=== PATIENT | male | born 1970 | race Caucasian/White ===

== ENCOUNTER 2020-07-10 15:22 | Outpatient (REF) | payer OTHER, SELFPAY ==
[2020-07-10 16:28] LABS: Iron 117 mcg/dL (45-160); Percent Iron Saturation 30 % (15-50); Total Iron Binding Capacity 387 mcg/dL (228-428); Unsaturated Iron Binding 270 ug/dL
[2020-07-10 16:48] LABS: Ferritin 16 ng/mL (20-250)
== END 2020-07-10 15:23 | disposition home or self-care (01) ==
LOC: HO.BBR 15:22
PROVIDERS: PCP Internal Medicine; Visit Provider Internal Medicine Gastroenterology
DX: E83.110 Hereditary hemochromatosis (principal)
CPT/HCPCS: 36415; 82728; 83540

== ENCOUNTER 2020-07-10 15:55 | Outpatient (REF) | payer SELFPAY ==
[2020-07-11 09:18] LABS: SARS COV2 IgG Negative (Negative)
== END 2020-07-10 15:56 | disposition home or self-care (01) ==
LOC: HO.LNC 15:55
PROVIDERS: Visit Provider Pathology Anatomic Pathology & Clinical Pathology
DX: Z13.89 Encounter for screening for other disorder (principal)
CPT/HCPCS: 86769

== ENCOUNTER 2020-11-27 15:16 | Outpatient (REF) | payer OTHER, SELFPAY | END 2020-11-27 15:17 | disposition home or self-care (01) | LOC: HO.BBR 15:16 | PROVIDERS: Visit Provider Internal Medicine Gastroenterology | DX: Z13.89 Encounter for screening for other disorder (principal) ==

== ENCOUNTER 2021-04-23 15:49 | Outpatient (REF) | payer OTHER, SELFPAY | END 2021-04-23 15:50 | disposition home or self-care (01) | LOC: HO.BBR 15:49 | PROVIDERS: PCP Internal Medicine; Visit Provider Internal Medicine Gastroenterology | DX: Z13.89 Encounter for screening for other disorder (principal) ==

== ENCOUNTER 2022-01-29 10:00 | Outpatient (REF) | payer OTHER, SELFPAY | END 2022-01-29 10:01 | disposition home or self-care (01) | LOC: HO.BBR 10:00 | PROVIDERS: Visit Provider Internal Medicine Gastroenterology | DX: Z13.89 Encounter for screening for other disorder (principal) ==

== ENCOUNTER 2022-08-05 15:29 | Outpatient (REF) | payer OTHER, SELFPAY | END 2022-08-05 15:30 | disposition home or self-care (01) | LOC: HO.BBR 15:29 | PROVIDERS: Visit Provider Internal Medicine Gastroenterology | DX: Z13.89 Encounter for screening for other disorder (principal) ==

== ENCOUNTER 2023-09-11 15:31 | Outpatient (REF) | payer BC, SELFPAY | END 2023-09-11 15:32 | disposition home or self-care (01) | LOC: HO.BBR 15:31 | PROVIDERS: PCP Internal Medicine; Visit Provider Internal Medicine Gastroenterology | DX: Z13.89 Encounter for screening for other disorder (principal) ==

== ENCOUNTER 2024-02-01 09:02 | Outpatient (REF) | payer BC, SELFPAY | END 2024-02-01 09:03 | disposition home or self-care (01) | LOC: HO.BBR 09:02 | PROVIDERS: PCP Internal Medicine; Visit Provider Internal Medicine Gastroenterology | DX: Z13.89 Encounter for screening for other disorder (principal) ==

== ENCOUNTER 2024-06-07 15:28 | Outpatient (REF) | payer BC, SELFPAY | END 2024-06-07 15:29 | disposition home or self-care (01) | LOC: HO.BBR 15:28 | PROVIDERS: PCP Internal Medicine; Visit Provider Internal Medicine Gastroenterology | DX: Z13.89 Encounter for screening for other disorder (principal) ==

== ENCOUNTER 2024-09-06 11:52 | Outpatient (REF) | payer BC, SELFPAY ==
--- OUTSIDE RECORDS SUMMARY | 2024-09-06 13:03 | XMS_ITS | Clinical Summary ---
Author Organization [facility] Address [address] [id number] Care Team Providers Care Icu Nurse Name Role Phone Dhaval Martinez MD Primary Care Provider [phone] Allergies No known active allergies Medications Medication Sig Dispensed Refills Start Date End Date Status LOSARTAN POTASSIUM PO Take by mouth. 0 Active METOPROLOL SUCCINATE PO Take by mouth. 0 Active HYDROCHLOROTHIAZIDE PO Take by mouth. 0 Active cephalexin (KEFLEX) 500 MG capsule Take 1 capsule (500 mg total) by mouth 4 (four) times a day. 28 capsule 0 01/30/2024 Active Active Problems No known active problems Social History Tobacco Use Types Packs/Day Years Used Date Smoking Tobacco: Never Smokeless Tobacco: Never Tobacco Cessation:Counseling Given: No Alcohol Use Standard Drinks/Week Comments Not Currently 0 (1 standard drink = 0.6 oz pur e alcohol) Sex and Gender Information Value Date Recorded Sex Assigned at Male 01/30/2024 12:01 AM EDT Gender Identity Male 01/30/2024 12:01 AM EDT Sexual Orientation Not on file Job Start Date Occupation Industry Not on file Not on file Not on file Last Filed Vital Signs Vital Sign Reading Time Taken Comments Blood Pressure 155/81 01/30/2024 7:51 AM EDT Pulse 69 01/30/2024 7:51 AM EDT Temperature 37.1 ??C (98.7 ??F) 01/30/2024 7:51 AM ED T Respiratory Rate 16 01/30/2024 9:39 AM EDT Oxygen Saturation 98% 01/30/2024 7:51 AM EDT Inhaled Oxygen Concentration - - Weight 117.9 kg (260 lb) 01/29/2024 11:19 PM EDT Height 190.5 cm (6' 3 ) 01/29/2024 11:19 PM EDT Body Mass Index 32.5 01/29/2024 11:19 PM EDT Plan of Treatment Health Maintenance Due Date Last Done Comments Hepatitis B Vaccines (1 of 3 - 3-dose series) 1969 Hepatitis C Screening 1969 COVID-19 Vaccine (#1) 1969 Depression Screening 1981 Preventative Health Evaluation 1987 DTap / Tdap / Td (1 - Tdap) 1988 Colon Cancer Screening (Colonoscopy) 2014 Shingrix-Zoster Vaccine (1 of 2) 2019 Influenza Vaccine (#1) 2024 04/29/2021 Pneumococcal Vaccine Aged Out No long er eligible based on patient's age to complete this topic RSV Ped < 20 months Aged Out No longe r eligible based on patient's age to complete this topic Care Teams Icu Nurse Relationship Specialty Start Date End Date Dhaval Martinez MD [address] [facility] Primary Care [place] [address] PCP - General Internal Medicine 01/29/24
--- OUTSIDE RECORDS SUMMARY | 2024-09-06 13:03 | XMS_ITS | Clinical Summary ---
Author Organization [facility] ity Address [address] [place] [address] Care Team Providers Care Eyeglass Frames Inspector Name Role Phone Dhaval Martinez MD Primary Care Provider Medical History Medical History Date Comments Hypertension DX:Hypertension Hyperlipidemia DX:Hyperlipidemi a Social History Tobacco Use Types Packs/Day Years Used Date Smoking Tobacco: Never Smokeless Tobacco: Never Alcohol Use Standard Drinks/Week Comments Not Currently 0 (1 standard drink = 0.6 oz pur e alcohol) Sex and Gender Information Value Date Recorded Sex Assigned at Not on file Legal Sex Male 4:00 PM EST Gender Identity Not on file Sexual Orientation Not on file Obstetrics History Plan of Treatment Health Maintenance Due Date Last Done Comments DTaP,Tdap,and Td Vaccines (1 - Tdap) 1988 Hepatitis B Vaccines (1 of 3 - 19+ 3-dose series) 1988 Pneumococcal Vaccine: 50+ Ye ars (1 of 1 - PCV) 2019 Zoster Vaccines (1 of 2) 2019 Cholesterol Screening (Lipid Panel) 06/18/2022 Colorectal Cancer Screening: Colonoscopy 06/18/2022 Depression Screening 06/18/2022 HIV Screening 06/18/2022 Hepatitis C Screening 06/18/2022 Social Influencers of Health Screening 06/18/2022 COVID-19 Vaccine ( - 2023-2 5 season) 2024 Influenza Vaccine (#1) 2024 HIB Vaccines Aged Out No longer eligi ble based on patient's age to complete this topic HPV Vaccines Aged Out No longer eligi ble based on patient's age to complete this topic Hepatitis A Vaccines Aged Out No long er eligible based on patient's age to complete this topic IPV Vaccines Aged Out No longer eligi ble based on patient's age to complete this topic MMR Vaccines Aged Out No longer eligi ble based on patient's age to complete this topic Meningococcal ACWY Vaccine Aged Out N o longer eligible based on patient's age to complete this topic Meningococcal B Vacine Aged Out No lo nger eligible based on patient's age to complete this topic Pneumococcal Vaccine: Pediat rics (0 to 5 Years) and At-Risk Patients (6 to 64 Years) Aged Out No longer eligible b ased on patient's age to complete this topic RSV Immunization Patients Un jeovany 20 months Aged Out No longer eligible b ased on patient's age to complete this topic Varicella Vaccines Aged Out No longer eligible based on patient's age to complete this topic Procedures Procedure Name Priority Date/Time Associated Diagnosis Comments EXTERNAL CLINICAL LAB 06/08/2024 from Last 3 Months Results * External clinical lab (06/08/2024) us Provider [facility] BLOOD ORDERABLES Fin al Result from Last 3 Months Care Teams Eyeglass Frames Inspector Relationship Specialty Start Date End Date Dhaval Martinez MD [address] [facility] [address] [place], [place] PCP - General 01/29/24
== END 2024-09-06 11:53 | disposition home or self-care (01) ==
LOC: HO.BBR 11:52
PROVIDERS: PCP Internal Medicine; Visit Provider Internal Medicine Gastroenterology
DX: Z13.89 Encounter for screening for other disorder (principal)

== ENCOUNTER 2024-12-06 15:16 | Outpatient (REF) | payer BC, SELFPAY ==
--- OUTSIDE RECORDS SUMMARY | 2024-12-06 16:22 | XMS_ITS | Clinical Summary ---
Author Organization [facility] Address [address] [id number] Care Team Providers Care Production Support Manager Name Role Phone Dhaval Martinez MD Primary Care Provider [phone]- [phone] Allergies No known active allergies Medications Medication [...] age to complete this topic Care Teams Production Support Manager Relationship Specialty Start Date End Date Dhaval Martinez MD [address] [facility] Primary Care [place] [address] PCP - General Internal Medicine 01/29/24
--- OUTSIDE RECORDS SUMMARY | 2024-12-06 16:22 | XMS_ITS ---
Author Name [facility] Organization Unknown Results Test Name/Text Value Interpretation Date Range Source BNP BLD MCNC 10pg/mL Normal [id number] 0 - 100 [facility] D DIMER DDU PPP EIA MCNC 177ng/mLDDU Normal [id number] - 231 [facility] POTASSIUM SERPL SCNC 3.7mmol/L Normal [id number] 3.5 - 5.1 [facility] CALCIUM SERPL MCNC 8.9mg/dL Normal [id number] 8.4 - 10 .2 [facility] ANION GAP SERPL SCNC 9mmol/L Normal [id number] 5 - 14 [facility] HCO3 SER SCNC 28mmol/L Normal [id number] 24 - 32 [facility] SODIUM SERPL SCNC 138mmol/L Normal [id number] 135 - 145 [facility] CREAT SERPL MCNC 1.1mg/dL Normal [id number] 0.7 - [facility]3 [facility] Glomerular filtration rate/1.73 sq M. predicted 80 Normal [id number] 60 - [facility] BUN SERPL MCNC 16mg/dL Normal [id number] 9 - 20 [facility] GLUCOSE SERPL MCNC 97mg/dL Normal [id number] 70 - 199 [facility] CHLORIDE SERPL SCNC 101mmol/L Normal [id number] 98 - 10 7 [facility] BASOPHILS IN BLOOD BY AUTOMATED COUNT 0K/uL Normal [id number] 0 - 0.2 [facility] NEUTROPHILS NFR BLD AUTO 65% Normal [id number] 44 - 74 [facility] MCH RBC QN AUTO 33.7pg Above high normal [id number] 25 - 33 [facility] NEUTROPHILS NO. BLD AUTO 5.7K/uL Normal [id number] 1.8 - 7.8 [facility] NUCLEATED RBC 0% Normal [id number] 0 - 1 [facility] LYMPHOCYTES NO. BLD AUTO 1.8K/uL Normal [id number] 1 - 3.2 [facility] IMMATURE GRANULOCYTE, PERCENT 0.8% Normal [id number] 0 - 1 [facility] HCT VFR BLD AUTO 45.1% Normal [id number] 40 - 54 [facility] MCV RBC AUTO 90.9fL Normal [id number] 78 - 100 [facility] IMMATURE GRANULOCYTE, ABSOLUTE 0.07k/uL Normal [id number] - 0.1 [facility] RBC NO. BLD AUTO 4.96M/uL Normal [id number] 4.7 - 6 [facility] PMV BLD AUTO 9.3fL Normal [id number] 7.4 - 11.4 [facility] PLATELET NO. BLD AUTO 143K/uL Below low normal [id number] 5 150 - 450 [facility] RDW RBC AUTO RTO 12.7% Normal [id number] 12.1 - 17. 7 [facility] LYMPHOCYTES NFR BLD AUTO 20.8% Normal [id number] 20 - 48 [facility] MONOCYTES NFR BLD AUTO 10% Normal [id number] 2 - 12 [facility] BASOPHILS NFR BLD AUTO 0.5% Normal [id number] 0 - 2 [facility] MONOCYTES NO. BLD AUTO 0.9K/uL Above high normal [id number] 0 - 0.8 [facility] WBC NO. BLD AUTO 8.8K/uL Normal [id number] 4 - 10.5 [facility] EOSINOPHIL NFR BLD AUTO 2.9% Normal [id number] 0 - 6 [facility] EOSINOPHIL NO. BLD AUTO 0.3K/uL Normal [id number] 0 - 0.5 [facility] MCHC RBC AUTO MCNC 37g/dL Above high normal [id number] 32 - 36 [facility] HGB BLD MCNC 16.7g/dL Normal [id number] 13.5 - 18 [facility] History of Medication Use Medication Directions Dispensed Refills Start Date End Date Stat acetaminophen (TYLENOL) tablet 975 mg 975 mg, Oral, Once, On 01/30/24 at 0145, For 1 dose 01/30/2024 4 completed ceFAZolin (ANCEF) injection 1,000 mg 1,000 mg, Intravenous, Once, On 01/30/24 at 0915, For 1 doseFor Adults, if ordered IV then reconstitute each 1GM vial with 10mL sterile water or normal saline and administer IV Push over 3-5 minutes. 01/30/2024 completed cephalexin (KEFLEX) 500 MG capsule Take 1 capsule (500 mg total) by mouth 4 (four) times a day. 01/30/2024 active Problems Problem Status Onset Date Problem Type Date of Resoluti on Source Gout of right foot active EncounterDiagnosisAct [facility] Cellulitis of right leg active EncounterDiagnosisAct [facility] Encounters Encounter Type Encounter Reason Primary Diagnosis Location Date Emergency Cellulitis of right lower limb Cellulitis of right lower limb [facility] 01/29/2024 Care Team Organization Name Specialty Phone Email Start Date End [facility] Senior Digital Designer ([facility] 06/03/2024 [facility] 01/30/2024 [facility] MADDI CHAIDEZ Primary Care [facility] 01/30/2024
--- OUTSIDE RECORDS SUMMARY | 2024-12-06 16:22 | XMS_ITS | Clinical Summary ---
Author Organization [facility] ity Address [address] [place] [address] Care Team Providers Care Patient Care Technician Name Role Phone Dhaval Martinez MD Primary Care Provider [phone] Medical History Medical History Date Comments Hypertension [...] - 2023-2 5 season) 2024 Influenza Vaccine (Season Ended) 2025 HIB Vaccines Aged Out No longer eligi [...] age to complete this topic Meningococcal B Vaccine Aged Out No l onger eligible based on patient's age to complete [...] age to complete this topic Care Teams Patient Care Technician Relationship Specialty Start Date End Date Dhaval Martinez MD [address] [facility] [address] [place], [place] PCP - General 01/29/24
== END 2024-12-06 15:17 | disposition home or self-care (01) ==
LOC: HO.BBR 15:16
PROVIDERS: PCP Internal Medicine; Visit Provider Internal Medicine Gastroenterology
DX: Z13.89 Encounter for screening for other disorder (principal)

== ENCOUNTER 2025-03-06 09:51 | Outpatient (REF) | payer BC, SELFPAY ==
--- OUTSIDE RECORDS SUMMARY | 2025-03-06 10:35 | XMS_ITS ---
Author Name [facility] Organization Unknown Results Test Name/Text Value Interpretation Date Range Source BNP BLD MCNC 10.0 pg/mL Normal 01/30/2024 0 - 100 [facility] D DIMER DDU PPP EIA MCNC 177.0 ng/mL DDU Normal 01/30/2024 - 231 [facility] POTASSIUM SERPL SCNC 3.7 mmol/L Normal 01/30/2024 3.5 - 5 .1 [facility] CALCIUM SERPL MCNC 8.9 mg/dL Normal 01/30/2024 8.4 - 10.2 [facility] ANION GAP SERPL SCNC 9.0 mmol/L Normal 01/30/2024 5 - 14 [facility] HCO3 SER SCNC 28.0 mmol/L Normal 01/30/2024 24 - 32 [facility]TT [facility] SODIUM SERPL SCNC 138.0 mmol/L Normal 01/30/2024 135 - 14 5 [facility] CREAT SERPL MCNC 1.1 mg/dL Normal 01/30/2024 0.7 - 1.3 CT [facility] Glomerular filtration rate/1.73 sq M. predicted 80.0 Normal 01/30/2024 60 - [facility] BUN SERPL MCNC 16.0 mg/dL Normal 01/30/2024 9 - 20 [facility] GLUCOSE SERPL MCNC 97.0 mg/dL Normal 01/30/2024 70 - 199 [facility] CHLORIDE SERPL SCNC 101.0 mmol/L Normal 01/30/2024 98 - 1 07 [facility] BASOPHILS IN BLOOD BY AUTOMATED COUNT 0.0 K/uL Normal 01/30/2024 0 - 0.2 [facility] NEUTROPHILS NFR BLD AUTO 65.0 % Normal 01/30/2024 44 - 74 [facility] MCH RBC QN AUTO 33.7 pg Above high normal 01/30/2024 25 - 33 [facility] NEUTROPHILS NO. BLD AUTO 5.7 K/uL Normal 01/30/2024 1.8 - 7.8 [facility] NUCLEATED RBC 0.0 % Normal 01/30/2024 0 - 1 [facility] LYMPHOCYTES NO. BLD AUTO 1.8 K/uL Normal 01/30/2024 1 - 3.2 [facility] IMMATURE GRANULOCYTE, PERCENT 0.8 % Normal 01/30/2024 0 - 1 [facility] HCT VFR BLD AUTO 45.1 % Normal 01/30/2024 40 - 54 [facility] MCV RBC AUTO 90.9 fL Normal 01/30/2024 78 - 100 [facility] IMMATURE GRANULOCYTE, ABSOLUTE 0.07 k/uL Normal 01/30/2024 - 0.1 [facility] RBC NO. BLD AUTO 4.96 M/uL Normal 01/30/2024 4.7 - 6 [facility] PMV BLD AUTO 9.3 fL Normal 01/30/2024 7.4 - 11.4 [facility] PLATELET NO. BLD AUTO 143.0 K/uL Below low normal 01/30/2024 150 - 450 [facility] RDW RBC AUTO RTO 12.7 % Normal 01/30/2024 12.1 - 17.7 [facility] LYMPHOCYTES NFR BLD AUTO 20.8 % Normal 01/30/2024 20 - 48 [facility] MONOCYTES NFR BLD AUTO 10.0 % Normal 01/30/2024 2 - 12 [facility] BASOPHILS NFR BLD AUTO 0.5 % Normal 01/30/2024 0 - 2 [facility] MONOCYTES NO. BLD AUTO 0.9 K/uL Above high normal 01/30/2024 0 - 0.8 [facility] WBC NO. BLD AUTO 8.8 K/uL Normal 01/30/2024 4 - 10.5 [facility] EOSINOPHIL NFR BLD AUTO 2.9 % Normal 01/30/2024 0 - 6 [facility] EOSINOPHIL NO. BLD AUTO 0.3 K/uL Normal 01/30/2024 0 - 0.5 [facility] MCHC RBC AUTO MCNC 37.0 g/dL Above high normal 01/30/2024 32 - 36 [facility] HGB BLD MCNC 16.7 g/dL Normal 01/30/2024 13.5 - 18 [facility] History of Medication Use Medication Directions Dispensed Refills Start Date End Date [facility] acetaminophen (TYLENOL) tablet 975 mg 975 mg, Oral, Once, On 01/30/24 at 0145, For 1 dose 01/30/2024 4 completed ceFAZolin (ANCEF) injection 1,000 mg 1,000 mg, Intravenous, Once, On 01/30/24 at 0915, For 1 doseFor Adults, if ordered IV then reconstitute each 1GM vial with 10mL sterile water or normal saline and administer IV Push over 3-5 minutes. 01/30/2024 4 completed cephalexin (KEFLEX) 500 MG capsule Take 1 capsule (500 mg total) by mouth 4 (four) times a day. 01/30/2024 active Problems Problem Status Onset Date Problem Type Date of Resoluti on Source Cellulitis of right leg active EncounterDiagnosisAct [facility] Gout of right foot active EncounterDiagnosisAct [facility] Encounters Encounter Type Encounter Reason Primary Diagnosis Location Date Emergency Cellulitis of right lower limb Cellulitis of right lower limb [facility] 01/29/2024 Care Team Organization Name Specialty Phone Email Start Date End [facility] ([facility] 06/03/2024 [facility] 01/30/2024 01/31/2025 [facility] Primary Care [facility] 01/30/2024
--- OUTSIDE RECORDS SUMMARY | 2025-03-06 10:35 | XMS_ITS | Clinical Summary ---
Author Organization [facility] Address [address] [id number] Care Team Providers Care Split Leather Mosser Name Role Phone Dhaval Martinez MD Primary Care Provider [phone] Allergies No known active allergies Medications Medication [...] 69 01/30/2024 7:51 AM EDT Temperature 37.1 C (98.7 F) 01/30/2024 7:51 AM EDT Respiratory Rate 16 01/30/2024 9:39 AM EDT [...] (1 of 2) 2019 Influenza Vaccine (#1) 2025 04/29/2021 Pneumococcal Vaccine Aged Out No long er eligible based on patient's age to complete this topic RSV Ped < 20 months Aged Out No longe r eligible based on patient's age to complete this topic Care Teams Split Leather Mosser Relationship Specialty Start Date End Date Dhaval Martinez MD [address] [facility] Primary Care [place] [address] PCP - General Internal Medicine 01/29/24
--- OUTSIDE RECORDS SUMMARY | 2025-03-06 10:35 | XMS_ITS | Clinical Summary ---
Author Organization [facility] [address] [facility]ly [facility] Address [address] [place] [address] Phone Care Team Providers Care [employer] Concierge Name Role Phone Maddi Martinez MD Primary Care Provider Allergies Active Allergy Reactions Criticality Noted Date Comments Lisinopril 01/05/2025 Medications hydroCHLOROthia zide (HYDRODIURIL) 25 mg tablet Take 1 tablet (25 mg total) by mouth 1 (one) time each day. Active losartan (Cozaar) 50 mg tablet Take 2 tablets (100 mg total) by mouth 1 (one) time each day. Active metoprolol succinate (Toprol XL) 100 mg 24 hr tablet Take 1 tablet (100 mg total) by mouth 1 (one) time each day. Active cholestyramine (QUESTRAN) 4 gram packet Take 1 packet (4 g total) by mouth 3 (three) times a day with meals. Active Encounters Date Type Department Care Team Description 01/25/2025 Telephone Gastroenterology - [address] [address] Catrachito Vences [place] Hemochromatosis 01/23/2025 Telephone Gastroenterology - [address] [address] Jose Pascal MD medical question 01/05/2025 Telephone Gastroenterology - [address] [address] Ck Crenshaw MD Special Procedure from Last 3 Months Medical History Medical History Date Comments Hypertension DX:Hypertension Hyperlipidemia DX:Hyperlipidemi a Social History Tobacco Use Types Packs/Day Years Used Date Smoking Tobacco: Never Smokeless Tobacco: Never Alcohol Use Standard Drinks/Week Comments Not Currently 0 (1 standard drink = 0.6 oz pur e alcohol) Sex and Gender Information Value Date Recorded Sex Assigned at Male 01/04/2025 3:14 PM EDT Legal Sex Male 4:00 PM EST Gender Identity Male 01/04/2025 3:14 PM EDT Sexual Orientation Not on file Obstetrics History Plan of Treatment Upcoming Encounters Date Type Department Care Team (Late st Contact Info) Description 04/04/2025 3:30 PM EDT Office Visit Gastroenterology - [address] [place] [address] Jose Pascal MD [address] [place] [address] Health Maintenance Due Date Last Done Comments Hepatitis A Vaccines (1 of 2 - Risk 2-dose series) 1988 Hepatitis B Vaccines (1 of 3 - 19+ 3-dose series) 1988 Pneumococcal Vaccine: 50+ Years (1 of 1 - PCV) 2019 Zoster Vaccines (1 of 2) 2019 Cholesterol Screening (Lipid Panel) 06/18/2022 HIV Screening 06/18/2022 Hepatitis C Screening 06/18/2022 Social Influencers of Health Screening 06/18/2022 Depression Screening 07/20/2024 Influenza Vaccine (#1) 2025 05/28/2023, 2020 Hypertension/CHF/CAD Annual BMP Blood Test 01/25/2026 01/25/2025, 01/30/2024, 01/30/2024 DTaP,Tdap,and Td Vaccines (2 - Td or Tdap) 06/24/2031 06/24/2021 Colorectal Cancer Screening: Colonoscopy 01/27/2035 01/27/2025 COVID-19 Vaccine Completed 04/12/2024, 03/2023, 11/05/2022, Additional history exists HIB Vaccines Aged Out No longer eligi [...] to complete this topic RSV Immunization Patients Under 20 months Aged Out No longer eligible based on patient's age to complete this topic Varicella Vaccines Aged Out No longer eligible based on patient's age to complete this topic Procedures Procedure Name Priority Date/Time Associated Diagnosis Comments EXTERNAL COLONOSCOPY REPORT Routine 01/27/2025 8:59 AM EDT CBC WITH AUTO DIFFERENTIAL Routine 01/25/2025 9:38 AM EDT Hereditary hemochromatosis ([facility]/HCC V24) FERRITIN Routine 01/25/2025 9:38 AM EDT Hereditary hemochromatosis (CMS/HCC V24) IRON AND TIBC Routine 01/25/2025 9:38 AM EDT Hereditary hemochromatosis (CMS/HCC V24) HEPATIC FUNCTION PANEL Routine 01/25/2025 9:38 AM EDT Hereditary hemochromatosis (CMS/HCC V24) BASIC METABOLIC PANEL Routine 01/25/2025 9:38 AM EDT Hereditary hemochromatosis (CMS/HCC V24) CBC AND DIFFERENTIAL Routine 01/25/2025 9:38 AM EDT Hereditary hemochromatosis (CMS/HCC V24) from Last 3 Months Results * External Colonoscopy Report (01/27/2025 8:59 AM EDT) Anatomical Region Laterality Modality Endoscopy us Historical Provider GI~PROCEDURE ORDERABLES F inal Result * (ABNORMAL) CBC auto differential (01/25/2025 9:38 AM EDT) WBC 6.0 4.8 - 10.8 K/[facility] LAB HEMETOLOGY METHOD 01/25/2025 10:42 AM [facility] RBC 4.90 4.50 - 5.50 M/mcL LAB HEMETOLOGY METHOD 01/25/2025 10:42 AM [facility] Hemoglobin 16.2 13.5 - 17.5 g/dL LAB HEMETOLOGY METHOD 01/25/2025 10:42 AM [facility] LAB Hematocrit 45.2 42.0 - 54.0 % LAB HEMETOLOGY METHOD 01/25/2025 10:42 AM [facility] MCV 93.0 79.0 - 98.0 FL LAB HEMETOLOGY METHOD 01/25/2025 10:42 AM [facility] MCH 33.3(H) 27.0 - 32.0 pcg LAB HEMETOLOGY METHOD 01/25/2025 10:42 AM [facility] LAB MCHC 35.8 32.0 - 37.0 g/dL LAB HEMETOLOGY METHOD 01/25/2025 10:42 AM [facility] RDW 12.4 11.0 - 15.0 % LAB HEMETOLOGY METHOD 01/25/2025 10:42 AM [facility] Platelets 155 130 - 400 K/mcL LAB HEMETOLOGY METHOD 01/25/2025 10:42 AM [facility] LAB MPV 9.5 7.0 - 11.0 FL LAB HEMETOLOGY METHOD 01/25/2025 10:42 AM [facility] NRBC 0.0 <1.0 % LAB HEMETOLOGY METHOD 01/25/2025 10:42 AM [facility] LAB NRBC Absolute 0.00 <0.10 K/mcL LAB HEMETOLOGY METHOD 01/25/2025 10:42 AM [facility] Neutrophils Relative 55.3 % LAB HEMETOLOGY METHOD 01/25/2025 10:42 AM [facility] LAB Lymphocytes Relative 27.2 % LAB HEMETOLOGY METHOD 01/25/2025 10:42 AM [facility] Monocytes Relative 10.5 % LAB HEMETOLOGY METHOD 01/25/2025 10:42 AM [facility] LAB Eosinophils Relative 4.8 % LAB HEMETOLOGY METHOD 01/25/2025 10:42 AM [facility] Basophils Relative 1.0 % LAB HEMETOLOGY METHOD 01/25/2025 10:42 AM [facility] Immature Granulocytes Relative 1.2 % LAB HEMETOLOGY METHOD 01/25/2025 10:42 AM [facility] Neutrophils Absolute 3.31 1.50 - 7.00 K/mcL LAB HEMETOLOGY METHOD 01/25/2025 10:42 AM [facility] Lymphocytes Absolute 1.63 1.00 - 5.00 K/mcL LAB HEMETOLOGY METHOD 01/25/2025 10:42 AM [facility] Monocytes Absolute 0.63 0.20 - 1.00 K/mcL LAB HEMETOLOGY METHOD 01/25/2025 10:42 AM [facility] Eosinophils Absolute 0.29 0.00 - 0.50 K/mcL LAB HEMETOLOGY METHOD 01/25/2025 10:42 AM [facility] Basophils Absolute 0.06 0.00 - 0.20 K/mcL LAB HEMETOLOGY METHOD 01/25/2025 10:42 AM [facility] Immature Granulocytes Absolute 0.07(H) 0.00 - 0.03 K/mcL LAB HEMETOLOGY METHOD 01/25/2025 10:42 AM [facility] Blood Venous blood specimen / Unknown Venipuncture / Unknown 01/25/2025 9:38 AM EDT 01/25/2025 10:24 AM EDT us Jose Pascal MD LAB BLOOD ORDERABLES Final Re sult Performing Organization Address [facility] Co de Phone Number [facility] [address] [place] [address], [place] [phone] * (ABNORMAL) Iron and TIBC (01/25/2025 9:38 AM EDT) Iron 224(H) 50 - 160 mcg/dL LAB CHEMISTRY METHOD 01/25/2025 11:56 AM EDT [facility] TIBC 364 250 - 450 mcg/dL LAB CHEMISTRY METHOD 01/25/2025 11:56 AM EDT [facility] Iron Saturation 62(H) 20 - 50 % LAB CHEMISTRY METHOD 01/25/2025 11:56 AM EDT [facility] Blood Venous blood specimen / Unknown Venipuncture / Unknown 01/25/2025 9:38 AM EDT 01/25/2025 10:19 AM EDT us Jose Pascal MD LAB BLOOD ORDERABLES Final Re sult Performing Organization Address [facility] de Phone Number [facility] [address] [place] [address], [place] [phone] * Ferritin (01/25/2025 9:38 AM EDT) Ferritin 41 26 - 388 ng/mL LAB CHEMISTRY METHOD 01/25/2025 11:56 AM EDT [facility] Blood Venous blood specimen / Unknown Venipuncture / Unknown 01/25/2025 9:38 AM EDT 01/25/2025 10:19 AM EDT us Jose Pascal MD LAB BLOOD ORDERABLES Final Re sult Performing Organization Address City/[facility]/ZIP Co de Phone Number [facility] [address] [place] [address], [place] [phone] * (ABNORMAL) Hepatic function panel (01/25/2025 9:38 AM EDT) Total Protein 6.8 6.0 - 8.0 g/dL LAB CHEMISTRY METHOD 01/25/2025 11:56 AM T [facility] Albumin 4.1 3.2 - 5.0 g/dL LAB CHEMISTRY METHOD 01/25/2025 11:56 AM EDT [facility] Total Bilirubin 2.0(H) 0.0 - 1.4 mg/dL LAB CHEMISTRY METHOD 01/25/2025 11:56 AM [facility] Bilirubin, Direct 0.3 0.0 - 0.3 mg/dL LAB CHEMISTRY METHOD 01/25/2025 11:56 AM [facility] Bilirubin, Indirect 1.7(H) 0.0 - 1.1 mg/dL LAB CHEMISTRY METHOD 01/25/2025 11:56 AM [facility] ALT (SGPT) 48 10 - 60 unit/L LAB CHEMISTRY METHOD 01/25/2025 11:56 AM [facility] AST (SGOT) 24 10 - 42 unit/L LAB CHEMISTRY METHOD 01/25/2025 11:56 AM [facility] Alkaline Phosphatase 80 42 - 121 unit/L LAB CHEMISTRY METHOD 01/25/2025 11:56 AM [facility] Blood Venous blood specimen / Unknown Venipuncture / Unknown 01/25/2025 9:38 AM EDT 01/25/2025 10:19 AM EDT us Jose Pascal MD LAB BLOOD ORDERABLES Final Re sult [facility] [address] [place] [address], [place] [phone] * (ABNORMAL) Basic metabolic panel (01/25/2025 9:38 AM EDT) Sodium 139 133 - 145 mmol/L LAB CHEMISTRY METHOD 01/25/2025 11:56 AM [facility] Potassium 4.3 3.5 - 5.5 mmol/L LAB CHEMISTRY METHOD 01/25/2025 11:56 AM [facility] Chloride 102 96 - 110 mmol/L LAB CHEMISTRY METHOD 01/25/2025 11:56 AM [facility] CO2 34(H) 21 - 32 mmol/L LAB CHEMISTRY METHOD 01/25/2025 11:56 AM [facility] Anion Gap 3 3 - 11 LAB CHEMISTRY METHOD 01/25/2025 11:56 AM [facility] Glucose 102(H) 70 - 100 mg/dL LAB CHEMISTRY METHOD 01/25/2025 11:56 AM [facility] BUN 16 5 - 25 mg/dL LAB CHEMISTRY METHOD 01/25/2025 11:56 AM [facility] Creatinine 1.19 0.70 - 1.30 mg/dL LAB CHEMISTRY METHOD 01/25/2025 11:56 AM [facility] eGFR 72 >=60 mL/min/1. 73m2 LAB CHEMISTRY METHOD 01/25/2025 11:56 AM [facility] Comment:Calculation based on the Chronic Kidney Disease Epidemiology Collaboration (CKD-EPI) equation refit without adjustment for race. BUN/Creatinine Ratio 13.4 LAB CHEMISTRY METHOD 01/25/2025 11:56 AM [facility] Calcium 9.2 8.5 - 10.5 mg/dL LAB CHEMISTRY METHOD 01/25/2025 11:56 AM [facility] Blood Venous blood specimen / Unknown Venipuncture / Unknown 01/25/2025 9:38 AM EDT 01/25/2025 10:19 AM EDT us Jose Pascal MD LAB BLOOD ORDERABLES Final Re sult [facility] [place] ([facility] [[email or web address] [address] [place] [address], [place] [phone] from Last 3 Months Insurance [facility] Care Teams [employer] Concierge Relationship Specialty Start Date End Date Maddi Martinez MD [address] [place], [place] PCP - General 01/29/24
== END 2025-03-06 09:52 | disposition home or self-care (01) ==
LOC: HO.BBR 09:51
PROVIDERS: PCP Internal Medicine; Visit Provider Internal Medicine Gastroenterology
DX: Z13.89 Encounter for screening for other disorder (principal)